=== PATIENT | female | born 1970 | race African-American/Black ===

== ENCOUNTER 2020-09-10 16:16 | Emergency (ER) | payer MEDICAID ==
[~2020-09-10] VITALS: Ht 167.6 cm; Wt 62.0 kg
[2020-09-10 16:18] VITALS: BP 154/100
== END 2020-09-10 16:46 | disposition left against medical advice (07) ==
LOC: ER 16:16 → EDBD 16:16 → ER 16:46
DX: F10.229 Alcohol dependence with intoxication, unspecified (principal); Y90.0 Blood alcohol level of less than 20 mg/100 ml
CPT/HCPCS: 99283